=== PATIENT | female | born 1950 | race Two or more races ===

== ENCOUNTER 2023-05-12 10:30 | Emergency (ER) | payer OTHER ==
[~2023-05-12] VITALS: Ht 170.2 cm; Wt 79.0 kg
[2023-05-12 11:43] VITALS: BP 141/82; PULSE 128; RESP 18; TEMP 97.2; O2SAT 99
[2023-05-12] MEDS ORDERED: GABA-1308 PO (13:10)
[2023-05-12] MEDS ORDERED: KETOROLAC TROMETH 60MG/2ML VIAL IM ONE (13:15)
== END 2023-05-12 13:19 | disposition home or self-care (01) ==
LOC: ER 10:30
DX: G62.9 Polyneuropathy, unspecified (principal); E11.9 Type 2 diabetes mellitus without complications; E78.5 Hyperlipidemia, unspecified; I10 Essential (primary) hypertension
CPT/HCPCS: 93971; J1885